=== PATIENT | male | born 1980 | race Caucasian/White ===

== ENCOUNTER → 2021-12-16 | Outpatient (CLI) | payer OTHER, MEDICAID | LOC: RAD 15:10 | DX: M25.562 Pain in left knee (principal) ==

== ENCOUNTER → 2022-06-11 | Outpatient (CLI) | payer OTHER, MEDICAID | LOC: RAD 13:17 | DX: M50.322 Other cervical disc degeneration at C5-C6 level (principal); M50.323 Other cervical disc degeneration at C6-C7 level; M47.812 Spondylosis without myelopathy or radiculopathy, cervical region; M54.50 Low back pain, unspecified ==

== ENCOUNTER → 2024-01-29 | Outpatient (CLI) | payer OTHER ==
[2024-01-29 17:19] LABS: ALBUMIN 4.7 g/dL (3.5-5.0)
[2024-01-29 17:21] LABS: CALCIUM 9.7 mg/dL (8.3-10.5)
[2024-01-29 17:22] LABS: TOTAL PROTEIN 7.6 g/dL (6.4-8.3)
[2024-01-29 17:24] LABS: TOTAL BILIRUBIN 0.6 mg/dL (0.2-1.2)
== END ==
LOC: LAB 16:58
PROVIDERS: Physician Assistant
DX: E78.5 Hyperlipidemia, unspecified (principal)